=== PATIENT | male | born 1980 | race Caucasian/White ===

== ENCOUNTER 2025-01-22 10:23 | Outpatient (REF) | payer OTHER, SELFPAY ==
[2025-01-22 13:06] LABS: MANUAL DIFF FLAG NO
[2025-01-22 13:09] LABS: Hematocrit 45.4 % (42.0-52.0); Hemoglobin 15.6 g/dl (14.0-18.0); Imm Gran Abs Auto 0.03 X10*3/uL (0.00-0.03); Imm Gran Pct Auto 0.4 % (0.0-0.4); Lymphocytes Absolute Auto 2.6 X10*3/uL (1.2-4.9); Mean Corpuscular HGB Conc 34.4 g/dl (31.0-36.0); Mean Corpuscular Hemoglobin 30.6 pg (27.0-33.0); Mean Corpuscular Volume 89.0 fL (80.0-98.0); NRBC Abs Auto 0.000 X10*3/uL (0.0-0.012); NRBC Pct Auto 0.0 /100WBC (0.0-0.2); Platelet Count 320 X10*3/uL (160-400); Red Blood Count 5.10 X10*6/uL (4.60-5.80); White Blood Count 7.6 X10*3/uL (4.8-10.8)
[2025-01-22 13:48] LABS: Alanine Aminotransferase 32 U/L (0-40); Albumin Level 4.9 g/dL (3.5-5.0); Alkaline Phosphatase 74 U/L (39-117); Anion Gap 10 (12-20); Aspartate Amino Transferase 27 U/L (5-37); Blood Urea Nitrogen 24 mg/dL (9-16); Calcium 10.0 mg/dL (8.4-10.2); Carbon Dioxide 28 mmol/L (22-29); Chloride 107 mmol/L (96-108); Estimated Glomerular Filt Rate > 60; Potassium 4.7 mmol/L (3.3-5.1); Sodium 140 mmol/L (135-145); Total Protein 8.1 g/dL (6.5-8.0)
== END 2025-01-22 10:24 | disposition home or self-care (01) ==
LOC: HO.10HDL 10:23
PROVIDERS: Visit Provider Hospitalist
DX: E66.9 Obesity, unspecified (principal); Z13.1 Encounter for screening for diabetes mellitus; Z13.29 Encounter for screening for other suspected endocrine disorder
CPT/HCPCS: 36415; 80053; 82248; 83036; 84443; 85025

== ENCOUNTER → 2025-01-22 15:42 | Outpatient (REF) | payer OTHER, SELFPAY ==
--- OUTSIDE RECORDS SUMMARY | 2025-01-23 00:21 | XMS_ITS | Clinical Summary ---
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 Not on lyndsey e 07/24/2024 Are you concerned about learning? Not on file 07/24/2024 No 07/24/2024 No 07/24/2024 Digital Access Answer Date Recorded No 07/24/2024 No 07/24/2024 Reliable internet access at home? Not on file 07/24/2024 Device with a working camera? Not on file Sex and Gender Information Value Date Recorded Sex Assigned at Not on file Legal Sex Male 11:04 AM EDT Gender Identity Not on file Sexual Orientation Not on file Plan of Treatment Health Maintenance Due Date Last Done Comments Adult Td,Tdap Booster 1982 LIPID PANEL 1982 DEPRESSION SCREENING 1994 SMOKING Hx and SMOKELESS TOB ACCO SCREENING 04/21/1995 HEPATITIS C SCREENING 2000 HIV ONE-TIME SCREENING (18-6 5 YEARS) 2000 INFLUENZA VACCINE (#1) 2024 COVID-19 VACCINE (2024-2 6 season) 2024 HEPATITIS A VACCINES Aged Out No long er eligible based on patient's age to complete this topic HIB VACCINES Aged Out No longer eligi ble based on patient's age to complete this topic MENINGOCOCCAL VACCINES (ACWY) Aged Out No longer eligible based on patient's age to complete this topic MENINGOCOCCAL VACCINES (B) Aged Out N o longer eligible based on patient's age to complete this topic PNEUMOCOCCAL VACCINES (0-49 years) Aged Out No longer eligible based on patient's age to complete this topic Medical Devices Not on file Insurance [place] [employer] [place] [employer] Care Teams Piece Dyeing Machine Tender Relationship Specialty Start Date End Date Pcp, Unknown PCP - General 07/14/24 Additional Source Comments The information contained in this document represents components of the legal health record. It is not the complete legal health record.[facility]
== END ==
LOC: HO.SL 15:42
PROVIDERS: PCP Hospitalist; Visit Provider Hospitalist
DX: G47.33 Obstructive sleep apnea (adult) (pediatric) (principal)
CPT/HCPCS: 95806

== ENCOUNTER → 2025-01-23 21:00 | Outpatient (BNV) | payer OTHER, SELFPAY | PROVIDERS: PCP Hospitalist; Visit Provider Psychiatry & Neurology Neurology | DX: G47.33 Obstructive sleep apnea (adult) (pediatric) (principal) | CPT/HCPCS: 95806 ==

== ENCOUNTER 2025-02-04 08:26 | Outpatient (AMB) | payer OTHER, SELFPAY ==
--- NOTE | 2025-02-04 08:29 | A.OFFVIS_ITS ---
Vital Signs 02/04/25 08:30 Height 5 ft 8 in Weight 202 lb BMI 30.7 BP 126/77 Blood Pressure Location Rt brachial Position Sitting Pulse 78 Pulse Source Pulse Oximeter Pulse Oximetry (%) 96 Oxygen Delivery Method Room Air Intake Visit Reasons: Obstructive sleep apnea Allergies No Known Allergies Allergy (Verified 02/04/25 08:35) HPI Comments Details: The patient is here for pulmonary evaluation. The patient is a 44-year-old gentleman presenting with significant daytime drowsiness. The patient states that he has had significant snoring and apneic episodes documented by his . The patient also has an elevated [place] score of 11/24. He has slowly gained 40lbs in the last several years. In view of the significant daytime drowsiness in symptoms the patient did undergo a home sleep study. It appears that he has mainly obstructive apneas with an AHI approximately of 50 events an hour suggesting very severe YOBANI. He did have significant desaturations down to 70% with an average pulse ox of 92%. In addition to that he had a maximum heart rate of 104 throughout the night. Therefore, the patient needs to start APAP therapy [place]. Will make arrangements with a local [employer] company in order to get him started as soon as possible. Once the patient is established we can have him have him undergo an overnight oximetry to make sure that his oxygenation is improved. If he continues to have significant hypoxia then a titration study will be performed. [facility] Medical History (Updated 02/04/25 @ 08:51 by Carlos Smalls MD) GERD (gastroesophageal reflux disease) YOBANI (obstructive sleep apnea) Social History (Updated 02/04/25 @ 08:36 by MILAGROS Rudolph) Patient Tobacco Use Status: Never used Tobacco Tobacco use type: Cigarette Review of Systems Const Reports daytime sleepiness, Reports snoring, Reports stops breathing during sleep and Reports weight gain Eyes Reports no additional complaints ENT Reports no additional complaints Card Denies chest pain Resp Reports snoring and Denies wheezing GI Reports no additional complaints and Denies dyspepsia Musc Reports no additional complaints Skin/Breast Denies rash Neuro Reports no additional complaints Psych Reports no additional complaints Endo Reports no additional complaints [place]/Lymph Reports no additional complaints Aller/Immun Reports no additional complaints and Denies wheezing Physical Exam Vital Signs: Last Vital Signs Pulse 78 02/04/25 08:30 BP 126/77 02/04/25 08:30 Pulse Ox 96 1223/25 08:30 Oxygen Delivery Method Room Air 02/04/25 08:30 BMI result Body Mass Index 30.7 Const General: comfortable HEENT Head: Yes normocephalic Neck Neck: Yes supple Chest Chest palpation & inspection: normal inspection of the chest Resp Effort & Inspection: normal respiratory effort Auscultation: clear to auscultation bilaterally Cardio Heart sounds: S1 normal heart sound present and S2 normal heart sound present GI Palpation (GI): Soft to palpation Skin General skin exam: no rashes or lesions noted Extrem General: Yes no clubbing, cyanosis or edema Assessment & Plan Assessment & Plan (1) YOBANI (obstructive sleep apnea): Comment: VERY SEVERE Code(s): G47.33 - Obstructive sleep apnea (adult) (pediatric) Category: Medical (2) GERD (gastroesophageal reflux disease): Code(s): K21.9 - Gastro-esophageal reflux disease without esophagitis Category: Medical Qualifiers: Esophagitis presence: without esophagitis Qualified Code(s): K21.9 - Gastro-esophageal reflux disease without esophagitis (3) Dyspnea: Code(s): R06.00 - Dyspnea, unspecified Category: Medical Qualifiers: Dyspnea type: dyspnea on exertion Qualified Code(s): R06.09 - Other forms of dyspnea Plan Start APAP CONNER reflux diet Overnight oximetry while on the APAP. If abnormal, will need a titration study F/U 3 months Coding Level of Care Code New Pt Level 4 (18496) Diagnoses YOBANI (obstructive sleep apnea) G47.33 Gastroesophageal reflux disease without esophagitis K21.9 Esophagitis presence: without esophagitis Dyspnea on exertion R06.09 Dyspnea type: dyspnea on exertion Time Spent (min) 35
[2025-02-04 08:30] VITALS: BP 126/77; PULSE 78; O2SAT 96; BMI 30.7
--- OUTSIDE RECORDS SUMMARY | 2025-02-04 08:34 | XMS_ITS | Clinical Summary ---
Author Organization [facility] Address [address] [phone] Phone Care Team Providers Care Marketing Project Lead Name Role Phone Pcp, Unknown Primary Care [...] topic Medical Devices Not on file Insurance [employer] PPO [employer] P[employer] P[employer] P[employer] Care Teams Marketing Project Lead Relationship Specialty Start Date End Date Pcp, Unknown PCP - General 07/14/24 Additional Source Comments The information contained in this document represents components of the legal health record. It is not the complete legal health record.[facility]
== END 2025-02-04 08:49 | disposition home or self-care (01) ==
LOC: HO.HPS 08:27
PROVIDERS: PCP Hospitalist; Visit Provider Hospitalist
DX: G47.33 Obstructive sleep apnea (adult) (pediatric) (principal); K21.9 Gastro-esophageal reflux disease without esophagitis; R06.09 Other forms of dyspnea
CPT/HCPCS: 99204